=== PATIENT | male | born 1970 | race Caucasian/White ===

== ENCOUNTER 2025-03-21 14:46 | Emergency (ER) | payer OTHER ==
[~2025-03-21] VITALS: Ht 182.9 cm; Wt 91.0 kg
[2025-03-21 15:00] LABS: BASOPHILS 0.8 % (0.2-1.2); EOSINOPHILS 2.6 % (0.8-7.0); HEMATOCRIT 41.7 % (40.1-51.0); HEMOGLOBIN 14.9 g/dL (13.7-17.5); LYMPHOCYTES 27.5 % (21.8-53.1); MCH 31.2 PG (25.7-32.2); MCHC 35.7 g/dL (32.3-36.5); MCV 87.2 fL (79.0-92.2); MONOCYTES 9.5 % (5.3-12.2); NEUTROPHILS 59.1 % (34.0-67.9); PLATELET COUNT 224 K/uL (163-337); RBC 4.78 M/uL (4.63-6.08)
[2025-03-21] MEDS ORDERED: ASPIRIN 81 MG CHEW PO ONE (15:00)
[2025-03-21] MEDS ORDERED: ATOMOXETINE HC100 MG PO (15:05)
[2025-03-21] MEDS ORDERED: PROPRANOLOL HCL20 MG PO (15:05)
[2025-03-21 15:18] LABS: ALBUMIN 3.9 g/dL (3.4-5.0); ALBUMIN/GLOBULIN RATIO 1.18 (1.1-2.4); ANION GAP 13.3 (7-21); BILIRUBIN, TOTAL 0.7 mg/dL (0.2-1.0); BUN/CREATININE RATIO 10.27 (6.0-28.6); CALCIUM 8.6 mg/dL (8.5-10.1); CREATININE, SERUM 1.46 mg/dL (0.70-1.30); MAGNESIUM 1.9 mg/dL (1.8-2.4); POTASSIUM 3.3 mmol/L (3.5-5.1); PROTEIN, TOTAL 7.2 g/dL (6.4-8.2)
[2025-03-21 16:51] VITALS: BP 150/107
--- NOTE | 2025-03-22 13:04 | EKG ---
[facility] [address] [facility] [place], [place] [address] Signed Normal sinus rhythm Normal ECG When compared with ECG of 21-MAR-2025 14:48, (Unconfirmed) No significant change was found Confirmed by Nuha Mims DO ([id number]) on 03/22/2025 1:03:55 PM Electronically Signed By: NUHA MIMS DO 03/22/25 1304 PATIENT NAME: LISSETTE REECE Electrocardiogram DATE OF : 66 PHYSICIAN: NUHA MIMS DO REPORT #: [id number] REPORT IS CONFIDENTIAL AND NOT TO BE RELEASED WITHOUT AUTHORIZATION
== END 2025-03-21 16:52 | disposition home or self-care (01) ==
LOC: ED 14:46
PROVIDERS: Emergency Medicine
DX: R07.89 Other chest pain (principal); I10 Essential (primary) hypertension; Z95.0 Presence of cardiac pacemaker; Z79.899 Other long term (current) drug therapy
CPT/HCPCS: 36415; 71045; 80053; 83735; 84484; 85025; 93005; 93010; 99285-25; A9270